=== PATIENT | female | born 1990 | race Caucasian/White ===

== ENCOUNTER 2022-03-26 17:43 | Emergency (ER) | payer BC, MEDICAID ==
[~2022-03-26] VITALS: Ht 160 cm; Wt 80.0 kg
[2022-03-27 01:15] VITALS: BP 124/76
[2022-03-27] MEDS ORDERED: IBUPROFEN 800 MG TAB PO ONE (01:30)
== END 2022-03-27 01:41 | disposition home or self-care (01) ==
LOC: ER 17:43
DX: S69.92XA Unspecified injury of left wrist, hand and finger(s), initial encounter (principal); Z88.0 Allergy status to penicillin; W01.0XXA Fall on same level from slipping, tripping and stumbling without subsequent striking against object, initial encounter; Y93.89 Activity, other specified; Y92.89 Other specified places as the place of occurrence of the external cause; Y99.8 Other external cause status
CPT/HCPCS: 73130